=== PATIENT | female | born 1995 | race Caucasian/White ===

== ENCOUNTER 2018-12-22 17:15 | Emergency (ER) | payer OTHER ==
[2018-12-22 17:33] VITALS: BP 123/66; PULSE 74; TEMP 98.3; BMI 26.6
[2018-12-22] MEDS ORDERED: ONDANSETRON 4 MG/2 ML VIAL IVPUSH ONE (18:44)
[2018-12-22] MEDS ORDERED: FAMOTIDINE 20 MG/50 ML IVPB 20 MG/50 ML MG IVPB ONE ×2 (18:44→19:35)
[2018-12-22] MEDS ORDERED: ACETAMINOPHEN 1000 MG/100 ML VIAL (NON FORMULARY) IVPB ONE (18:44)
[2018-12-22] MEDS ORDERED: SODIUM CHLORIDE 0.9% 500 ML INFUS.BAG IV ONE (18:46)
[2018-12-22] MEDS ORDERED: ONDANSETRON 4 MG/2 ML VIAL ONE (18:58)
[2018-12-22] MEDS ORDERED: ACETAMINOPHEN INJECTION 100 ML IVPB ONE (18:58)
--- NOTE | 2018-12-22 19:26 | PDOC ---
Documentation entered by Lacey Mejia SCRIBE, acting as scribe for Farzaneh Bryan MD. Farzaneh Bryan MD: This documentation has been prepared by the Jackie mir Sammi, SCRIBE, under my direction and personally reviewed by me in its entirety. I confirm that the documentation accurately reflects all work, treatment, procedures, and medical decision making performed by me. History of Present Illness - General Chief Complaint: Pain, Acute Stated Complaint: ABD PAIN History Source: Patient Exam Limitations: No Limitations - History of Present Illness Initial Comments: 12/22/18 19:13 The patient is a 23 year old female who presents to the emergency department for evaluation of diffuse, sharp/crampy abdominal pain strongest in the LUQ, 8/ 10 in severity with associated nausea. Pain at times radiates to epigastric area. She notes the pain began gradually around 1pm after eating a panini with cheese and has progressively worsened since. The patient states they have been gradually introducing dairy into her diet for her eating disorder treatment and notes slight discomfort with these foods every time she eats them. She notes diarrhea everyday which is her baseline. No treatments tried. Of note, pt also reports hunger at this time. Denies chest pain, shortness of breath, headache and dizziness. Denies fever, chills, vomiting. Denies dysuria, frequency, urgency and hematuria. Medical history: anxiety, depression, eating disorder Allergies: NKA Past History - Past Medical History Allergies/Adverse Reactions: Allergies Allergy/AdvReac Type Severity Reaction Status Date / Time Penicillins Allergy Verified 12/22/18 17:16 shellfish derived Allergy Verified 12/22/18 17:16 Home Medications: Ambulatory Orders Aripiprazole [Abilify -] 4 mg PO DAILY 12/22/18 Aripiprazole [Abilify] 5 mg PO HS 12/22/18 Diazepam [Valium] 2.5 mg PO BID 12/22/18 Epinephrine [Epipen 2-Nain] 0.3 mg IJ ASDIR #1 kit 12/22/18 Escitalopram Oxalate [Lexapro -] 10 mg PO DAILY 12/22/18 Prednisone [Prednisone 50 MG TABLETS] 50 mg PO DAILY #3 tablet 12/22/18 COPD: No - Suicide/Smoking/Psychosocial Hx Smoking History: Never smoked Hx Alcohol Use: No Drug/Substance Use Hx: No Review of Systems - Review of Systems Comments:: 12/22/18 19:15 GENERAL/CONSTITUTIONAL: No fever or chills. No weakness. HEAD, EYES, EARS, NOSE AND THROAT: No change in vision. No ear pain or discharge. No sore throat. GASTROINTESTINAL: (+)abdominal pain (+)nausea. No vomiting. GENITOURINARY: No dysuria, frequency, or change in urination. CARDIOVASCULAR: No chest pain or shortness of breath. RESPIRATORY: No cough, wheezing, or hemoptysis. MUSCULOSKELETAL: No joint or muscle swelling or pain. No neck or back pain. SKIN: No rash NEUROLOGIC: No headache, vertigo, loss of consciousness, or change in strength/ sensation. *Physical Exam - Vital Signs Last Vital Signs Temp Pulse Resp BP Pulse Ox 98.3 F 74 16 123/66 100 12/22/18 17:15 12/22/18 17:15 12/22/18 17:15 12/22/18 17:15 12/22/18 17:15 - Physical Exam Comments: 12/22/18 19:21 GENERAL: Awake, alert, and fully oriented, in no acute distress EYES: PERRLA, EOMI, sclera anicteric, conjunctiva clear ENT: Oropharynx clear without exudates. Moist mucosa LUNGS: Breath sounds equal, clear to auscultation bilaterally. No wheezes, and no crackles HEART: Regular rate and rhythm, normal S1 and S2, no murmurs, rubs or gallops ABDOMEN: Soft, nontender, non distended, normoactive bowel sounds. Neg murphys sign. No guarding, no rebound. No masses EXTREMITIES: Normal range of motion, no edema. No cords, erythema, or tenderness NEUROLOGICAL: Normal speech, cranial nerves intact, equal strength and sensation b/l SKIN: Warm, Dry, normal turgor, no rashes or lesions noted. ED Treatment Course - LABORATORY CBC & Chemistry Diagram: 12/22/18 19:08 12/22/18 19:08 - Medications Given in the ED: ED Medications Discontinued Medications Generic Name Dose Route Start Last Admin Trade Name Freq PRN Reason Stop Dose Admin Acetaminophen 1,000 mg 12/22/18 18:44 12/22/18 19:11 Ofirmev Injection - IVPB 12/22/18 18:45 1,000 mg ONCE ONE Administration Ondansetron HCl 4 mg 12/22/18 18:44 12/22/18 19:11 Zofran Injection IVPUSH 12/22/18 18:45 4 mg ONCE ONE Administration Sodium Chloride 1,000 ml 12/22/18 18:46 12/22/18 19:11 Normal Saline - IV 12/22/18 18:47 1,000 ml ONCE ONE Administration Medical Decision Making - Medical Decision Making 12/22/18 19:00 23yo F hx eating disorder, depression, anxiety presents to the ED with LUQ abd pain radiating to epigastric area Vitals unremarkable Exam benign with no ttp, pt is hungry and requesting food DDx includes gastritis vs enteritis vs pancreatitis vs GERD Plan for labs, UPT, UA, serial abd exams, reassess WIll give GI cocktail as well Case signed out to Dr. Nixon for reassessment, dispo *DC/Admit/Observation/Transfer Diagnosis at time of Disposition: Nausea, Vomiting, Epigastric pain, Allergic reaction - Discharge Dispostion Disposition: HOME Condition at time of disposition: Stable - Prescriptions Prescriptions: Epinephrine [Epipen 2-Nain] 0.3 mg IJ ASDIR #1 kit Prednisone [Prednisone 50 MG TABLETS] 50 mg PO DAILY #3 tablet - Referrals - Patient Instructions Printed Discharge Instructions: Lactose Intolerance, DI for General Allergic Reactions Additional Instructions: AVOID all dairy items until your symptoms have resolved completely. Then, consult with your primary doctor about adding any foods to your diet. You also appeared to have an allergic reaction, possibly to the peanut butter in your sandwich. AVOID any nuts and nut products until you are able to see an market development trainer. Make an appointment within 1 week for further evaluation of your food allergies. Take the prednisone once a day for 3 days as prescribed. Carry an epi-pen with you at all times in case of severe allergic reaction. If you experience any recurrent itching, swelling of your face or tongue, difficulty breathing, abdominal pain, nausea, vomiting, fevers, or any other concerning symptoms, return to the ER immediately. - Post Discharge Activity
[2018-12-22 19:39] LABS: ALBUMIN 3.6 g/dl (3.4-5.0); BILIRUBIN,TOTAL 0.7 mg/dl (0.2-1); CALCIUM 9.1 mg/dl (8.5-10); CREATININE 0.8 mg/dl (0.55-1.3); POTASSIUM 3.9 mmol/L (3.5-5.1); TOT PROT 6.6 g/dl (6.4-8.2)
[2018-12-22 19:40] LABS: BASO % 0.4 % (0-2.0); EOS % 1.6 % (0-4.5); HEMOGLOBIN 13.4 GM/dl (10.7-15.3); MCH 26.7 pg (25.7-33.7); MCHC 32.7 g/dl (32.0-36.0); MEAN CELL VOLUME 81.6 fl (80-96); MEAN PLT VOLUME 8.4 fl (7.5-11.1); MONO % 6.9 % (3.8-10.2); NEUT % 58.1 % (42.8-82.8); PLATELET COUNT 258 K/MM3 (134-434); RBC 5.02 M/mm3 (3.60-5.2); RDW 13.1 % (11.6-15.6); WHITE BLOOD COUNT 9.5 K/mm3 (4.0-10.8)
--- NOTE | 2018-12-22 21:18 | PDOC ---
*Physical Exam - Vital Signs Last Vital Signs Temp Pulse Resp BP Pulse Ox 98.3 F 74 16 123/66 100 12/22/18 17:15 12/22/18 17:15 12/22/18 17:15 12/22/18 17:15 12/22/18 17:15 ED Treatment Course - LABORATORY CBC & Chemistry Diagram: 12/22/18 19:08 12/22/18 19:08 - ADDITIONAL ORDERS Additional order review: Laboratory Results 12/22/18 12/22/18 12/22/18 19:08 19:08 18:55 Sodium 139 Potassium 3.9 Chloride 106 Carbon Dioxide 28 Anion Gap 5 L BUN 12.0 Creatinine 0.8 Est GFR (CKD-EPI)AfAm 119.60 Est GFR (CKD-EPI)NonAf 103.19 Random Glucose 90 Calcium 9.1 Total Bilirubin 0.7 AST 18 ALT 23 Alkaline Phosphatase 52 Total Protein 6.6 Albumin 3.6 Lipase 150 Urine Color Urine Appearance Urine pH Urine Protein Urine Glucose (UA) Urine Ketones Urine Blood Urine Nitrite Urine Bilirubin Urine Urobilinogen Ur Leukocyte Esterase Urine HCG, Qual Negative 12/22/18 18:55 Sodium Potassium Chloride Carbon Dioxide Anion Gap BUN Creatinine Est GFR (CKD-EPI)AfAm Est GFR (CKD-EPI)NonAf Random Glucose Calcium Total Bilirubin AST ALT Alkaline Phosphatase Total Protein Albumin Lipase Urine Color Yellow Urine Appearance Slightly Urine pH 7.0 Urine Protein Negative Urine Glucose (UA) Negative Urine Ketones Negative Urine Blood Negative Urine Nitrite Negative Urine Bilirubin Negative Urine Urobilinogen 0.2 Ur Leukocyte Esterase Negative Urine HCG, Qual 12/22/18 19:08 RBC 5.02 MCV 81.6 MCHC 32.7 RDW 13.1 MPV 8.4 Neutrophils % 58.1 Lymphocytes % 33.0 Monocytes % 6.9 Eosinophils % 1.6 Basophils % 0.4 - Medications Given in the ED: ED Medications Discontinued Medications Generic Name Dose Route Start Last Admin Trade Name Freq PRN Reason Stop Dose Admin Acetaminophen 1,000 mg 12/22/18 18:44 12/22/18 19:11 Ofirmev Injection - IVPB 12/22/18 18:45 1,000 mg ONCE ONE Administration Famotidine/Sodium Chloride 20 mg in 50 mls @ 100 mls/hr 12/22/18 18:44 19:33 Pepcid 20 Mg Premixed Ivpb - IVPB 12/22/18 19:13 100 mls/hr ONCE ONE Administration Ondansetron HCl 4 mg 12/22/18 18:44 12/22/18 19:11 Zofran Injection IVPUSH 12/22/18 18:45 4 mg ONCE ONE Administration Sodium Chloride 1,000 ml 12/22/18 18:46 12/22/18 19:11 Normal Saline - IV 12/22/18 18:47 1,000 ml ONCE ONE Administration Medical Decision Making - Medical Decision Making 12/22/18 21:16 23 F with epigastric pain, N+V after eating dairy products today. Pt is known to have lactose intolerance. - Labs wnl Pt reassessed - now feels completely better after meds. Tolerating PO - ate peanut butter and jelly sandwich without any nausea/ vomiting. 12/22/18 21:30 Upon discharge, pt was noted to have developed hives. She had just eaten peanut butter and jelly sandwich. No prior h/o nut allergies. However, there is family history of nut allergies. Pt complains of itching to legs and chest. Hives noted on exam. Pt denies SOB/ CP. Denies N/V. No swelling of lips or tongue on exam. Will given benadryl and steroids and continue to observe in ED. 12/23/18 01:11 Pt reassessed - hives now resolved Pt denies any itching Pt is well appearing, with normal vitals. Clinically stable for DC at this time. I discussed the physical exam findings, ancillary test results and final diagnoses with the patient. I answered all of the patient's questions. The patient was satisfied with the care received and felt comfortable with the discharge plan and treatment plan. The patient agrees to follow up with the primary care physician within 24-72 hours. *DC/Admit/Observation/Transfer Diagnosis at time of Disposition: Nausea, Vomiting, Epigastric pain, Allergic reaction - Discharge Dispostion Disposition: HOME Condition at time of disposition: Stable - Prescriptions Prescriptions: Epinephrine [Epipen 2-Nain] 0.3 mg IJ ASDIR #1 kit Prednisone [Prednisone 50 MG TABLETS] 50 mg PO DAILY #3 tablet - Referrals - Patient Instructions Printed Discharge Instructions: Lactose Intolerance, DI for General Allergic Reactions Additional Instructions: AVOID all dairy items until your symptoms have resolved completely. Then, consult with your primary doctor about adding any foods to your diet. You also appeared to have an allergic reaction, possibly to the peanut butter in your sandwich. AVOID any nuts and nut products until you are able to see an dock coordinator. Make an appointment within 1 week for further evaluation of your food allergies. Take the prednisone once a day for 3 days as prescribed. Carry an epi-pen with you at all times in case of severe allergic reaction. If you experience any recurrent itching, swelling of your face or tongue, difficulty breathing, abdominal pain, nausea, vomiting, fevers, or any other concerning symptoms, return to the ER immediately. - Post Discharge Activity - Attestations Physician Attestion: 12/22/18 21:18 I, Dr. Jason Nixon MD, attest that this document has been prepared under my direction and personally reviewed by me in its entirety. I further attest, that it accurately reflects all work, treatment, procedures and medical decision -making performed by me.
[2018-12-22] MEDS ORDERED: methylPREDNISolone NA SUCC 125 MG/2 ML VIAL IVPB ONE (21:29)
[2018-12-22] MEDS ORDERED: methylPREDNISolone NA SUCC 125 MG/2 ML VIAL ONE ×2 (21:32→21:38)
== END 2018-12-22 22:16 | disposition home or self-care (01) ==
LOC: FER 17:15
PROC: 3E0337Z Introduction of Electrolytic and Water Balance Substance into Peripheral Vein, Percutaneous Approach (ICD-10-PCS; principal; 2018-12-22)
PROC: 3E033GC Introduction of Other Therapeutic Substance into Peripheral Vein, Percutaneous Approach (ICD-10-PCS; 2018-12-22)
PROC: 3E033NZ Introduction of Analgesics, Hypnotics, Sedatives into Peripheral Vein, Percutaneous Approach (ICD-10-PCS; 2018-12-22)
DX: R10.13 Epigastric pain (principal); R11.2 Nausea with vomiting, unspecified; T78.49XA Other allergy, initial encounter; F41.8 Other specified anxiety disorders; F50.9 Eating disorder, unspecified
CPT/HCPCS: 36415; 80053; 81003; 83690; 84703; 85025; 87086; 99284-25; J0131